=== PATIENT | female | born 1935 | race Caucasian/White ===

== ENCOUNTER 2016-05-11 07:31 | Outpatient (CLI) | payer MEDICARE, OTHER | END 2016-05-11 07:32 | disposition home or self-care (01) | DX: R73.9 Hyperglycemia, unspecified (principal); E03.9 Hypothyroidism, unspecified; J44.9 Chronic obstructive pulmonary disease, unspecified ==

== ENCOUNTER 2016-07-06 09:35 | Outpatient (CLI) | payer MEDICARE, OTHER | END 2016-07-06 09:36 | disposition home or self-care (01) | DX: E03.9 Hypothyroidism, unspecified (principal) ==

== ENCOUNTER 2016-11-16 10:18 | Outpatient (CLI) | payer MEDICARE, OTHER ==
[2016-11-16 17:05] LABS: ALBUMIN/GLOBULIN RATIO 1.8 (1.0-2.2); BILIRUBIN,TOTAL 0.8 mg/dL (0.2-1.0); BUN - BLOOD UREA NITROGEN 17 mg/dL (6-20); CALCIUM 9.5 mg/dL (8.5-10.3); CARBON DIOXIDE - CO2 28 mmol/L (21-32); CHLORIDE 103 mmol/L (101-111); CHOL/HDL RATIO 2.8 (<4.4); CHOLESTEROL 214 mg/dL; CREATININE 0.6 mg/dL (0.4-1.0); GFR - MDRD 96 (>89); GLUCOSE 97 mg/dL (70-100); HDL CHOLESTEROL 76 mg/dL; POTASSIUM 4.4 mmol/L (3.5-5.0); SODIUM 139 mmol/L (135-145); TOTAL PROTEIN 6.5 g/dL (6.7-8.2); TRIGLYCERIDES 31 mg/dL
[2016-11-16 17:24] LABS: LDL CHOLESTEROL,DIRECT 120 mg/dL
== END 2016-11-16 10:19 | disposition home or self-care (01) ==
LOC: LAB.WCP 10:18
PROVIDERS: ATTEND Physician Assistant Medical
DX: E78.5 Hyperlipidemia, unspecified (principal)
CPT/HCPCS: 36415; 80053; 80061

== ENCOUNTER 2016-11-30 11:05 | Outpatient (CLI) | payer MEDICARE, OTHER | END 2016-11-30 11:06 | disposition critical access hospital (66) | LOC: EMS 11:05 | PROVIDERS: ATTEND Surgery | DX: I49.8 Other specified cardiac arrhythmias (principal) | CPT/HCPCS: A0425; A0427 ==

== ENCOUNTER 2016-11-30 11:24 | Emergency (ER) | payer MEDICARE, OTHER ==
[2016-11-30] MEDS ORDERED: SODIUM CHLORIDE FLUSH 0.9% 10 ML SYRINGE IVP ONE (12:03)
[2016-11-30 12:36] LABS: ALBUMIN/GLOBULIN RATIO 1.7 (1.0-2.2); BILIRUBIN,TOTAL 0.8 mg/dL (0.2-1.0); CALCIUM 9.4 mg/dL (8.5-10.3); CREATININE 0.7 mg/dL (0.4-1.0); POTASSIUM 4.1 mmol/L (3.5-5.0); TOTAL PROTEIN 6.1 g/dL (6.7-8.2)
--- NOTE | 2016-11-30 13:23 | ED Physician Documentation ---
PD HPI CHEST PAIN - Stated complaint Stated Complaint: EKG - Chief complaint Chief Complaint: Cardiac - History obtained from History obtained from: Patient - History of Present Illness Timing - onset: Other (she has not had chest pain. Was seen in PCP office today for routine visit, without chest pain complaint. Noted some irregular heart rate and she says she does feel skipping heart rate intermittently. 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 Sent to ED for further evaluation.) Timing - details: No: Still present Quality: Other (has not had chest pain nor pressure. Mild AYOUB. feels palpatiations at times.) Associated symptoms: Shortness of air, Palpitations. No: Nausea, Feeling faint / dizzy, General Weakness Similar symptoms before: Has not had sx before Recently seen: Clinic (today, with ECG that was concerning and referred to ED for evaluation.) Review of Systems Constitutional: denies: Fever, Chills, Myalgias Throat: denies: Sore throat Cardiac: reports: Palpitations. denies: Chest pain / pressure, Pedal edema, Calf pain Respiratory: reports: Dyspnea (mild with exertion). denies: Cough, Wheezing GI: denies: Abdominal Pain, Nausea, Vomiting Neurologic: denies: Generalized weakness, Focal weakness, Numbness, Syncope Endocrine: denies: Weight loss, Weight gain, Easy bruising / bleeding Immunocompromised: denies: Immunocompromised PD PAST MEDICAL HISTORY - Past Medical History Cardiovascular: None Respiratory: COPD - Past Surgical History /PRINCIPAL EXAMINER: Hysterectomy - Present Medications Home Medications: Ambulatory Orders Medication Instructions Recorded Confirmed Metoprolol Succinate [Toprol Xl] 25 mg PO DAILY #30 tab.er.24h 11/30/16 - Allergies Allergies/Adverse Reactions: Allergies Allergy/AdvReac Type Severity Reaction Status Date / Time No Known Drug Allergies Allergy Verified 11/30/16 11:36 - Social History Does the pt smoke?: No Smoking Status: Former smoker Does the pt drink ETOH?: Yes ETOH Use: Wine Does the pt have substance abuse?: No - Immunizations Immunizations: No immun PD ED PE NORMAL - Vitals Vital signs reviewed: Yes - General General: Alert and oriented X 3, No acute distress, Well developed/nourished, Other (vigorous appearing woman for age. ) - Neck Neck: Supple, no meningeal sign, No adenopathy - Cardiac Cardiac: RRR (some irregularity with pauses c/w PACs, as seen on monitor as well. ), No murmur, No rub - Respiratory Respiratory: Clear bilaterally - Abdomen Abdomen: Normal bowel sounds, Soft, Non tender - Female Female : Deferred - Rectal Rectal: Deferred - Back Back: No CVA TTP - Derm Derm: Normal color, Warm and dry - Extremities Extremities: No tenderness to palpate, Normal ROM s pain, No edema, No calf tenderness / cord - Neuro Neuro: Alert and oriented X 3, No motor deficit, Normal speech - Psych Psych: Normal mood, Normal affect Results - Vitals Vitals: Vital Signs - 24 hr 11/30/16 11/30/16 11/30/16 11:32 13:40 14:57 Temperature 36.9 C 36.4 C L 36.6 C Heart Rate 68 93 79 Respiratory 16 22 18 Rate Blood Pressure 154/93 H 118/66 111/76 O2 Saturation 98 97 96 Oxygen O2 Source Room air - EKG (time done) 11:56 Rhythm: NSR, Other (frequent PACs) [place]: Normal Intervals: Normal [place] Ischemia: T wave inversion (anteriorly c/w prior anteroseptal infarct). No: ST elevation c/w ischemia, ST depression Compare to prior EKG: Old EKG unavailable - Labs Labs: Laboratory Tests 11/30/16 11/30/16 12:08 12:08 Sodium 139 Potassium 4.1 Chloride 103 Carbon Dioxide 27 Anion Gap 9.0 BUN 21 H Creatinine 0.7 Estimated GFR (MDRD) 80 L Glucose 98 Calcium 9.4 Total Bilirubin 0.8 AST 18 ALT 21 Alkaline Phosphatase 50 Troponin I 0.04 Total Protein 6.1 L Albumin 3.8 Globulin 2.3 Albumin/Globulin Ratio 1.7 Lipase 19 L - Rads (name of study) ECHO Radiology: Prelim report reviewed, Final report received (mild LVH, EF 70%, no regional wall motion abnormality) PD MEDICAL DECISION MAKING - ED course Complexity details: considered differential (abnormal ECG obtained at routine office visit, showing c/w prior septal infarct but normal Troponin and ECHO, so not apparent recent nor large [place]. Refer to PCP for possible cardiology referral. She does have frequent PACs here but feels okay. Consider low dose betablocker but she did not want to start med until talking with PCP and also prior PCP in [place], to whom she goes and gets exam 1-2 times yearly. ), d/ w patient Departure - Departure Disposition: 01 Home, Self Care Clinical Impression: Abnormal ECG, PAC (premature atrial contraction) Condition: Stable Record reviewed to determine appropriate education?: Yes Follow-Up: Gudelia Hatch PA-C [Primary Care Provider] - Prescriptions: Metoprolol Succinate [Toprol Xl] 25 mg PO DAILY #30 tab.er.24h Comments: Call and talk to your provider here in would [facility] and the one in [place] that you have. For the provider in [place], ask her to request the emergency room report which would include the nursing notes, EKG, lab tests , ultrasound report. Right now there is no signs of obvious heart malfunction mechanically on ultrasound. You do have an irregularity of the heartbeat called PACs. This could potentially be lessened with medication such as beta- chris. Discussed this with your provider. Your providers may still want you to see a data processing specialist fruit or nut picker, but would be at their referral. Discharge Date/Time: 11/30/16 15:12
[2016-11-30 14:58] VITALS: BP 111/76
== END 2016-11-30 15:12 | disposition home or self-care (01) ==
LOC: EDUNIT# → EDBD → ED 11:24
DX: R94.31 Abnormal electrocardiogram [ECG] [EKG] (principal); I49.1 Atrial premature depolarization; Z87.891 Personal history of nicotine dependence
CPT/HCPCS: 36415; 80053; 83690; 84484; 93005; 93306; 99283; 99284

== ENCOUNTER 2017-08-19 08:00 | Outpatient (CLI) | payer MEDICARE, OTHER ==
[2017-08-19 18:55] LABS: BASOPHILS % (AUTO) 0.7 %; EOSINOPHILS % (AUTO) 0.5 %; HGB - HEMOGLOBIN 14.5 g/dL (12.0-16.0); LYMPHOCYTES # (AUTO) 0.7 10^3/uL (1.5-3.5); LYMPHOCYTES % (AUTO) 15.1 %; MEAN CORPUSCULAR HEMOGLOBIN 32.8 pg (27.0-31.0); MEAN CORPUSCULAR HGB CONC 32.8 g/dL (32.0-36.0); MEAN CORPUSCULAR VOLUME 99.9 fL (81.0-99.0); MEAN PLATELET VOLUME 8.9 fL (7.9-10.8); MONOCYTES # (AUTO) 0.4 10^3/uL (0.0-1.0); MONOCYTES % (AUTO) 8.1 %; NEUTROPHILS # (AUTO) 3.7 10^3/uL (1.5-6.6); NEUTROPHILS % (AUTO) 75.6 %; PLT - PLATELET COUNT 239 10^3/uL (130-450); RED BLOOD COUNT 4.42 10^6/uL (4.20-5.40); RED CELL DISTRIBUTION WIDTH 14.1 % (12.0-15.0); WHITE BLOOD COUNT 4.9 x10^3/uL (4.8-10.8)
[2017-08-19 19:31] LABS: ALBUMIN/GLOBULIN RATIO 1.3 (1.0-2.2); ALKALINE PHOSPHATASE 59 IU/L (42-121); ALT ALANINE AMINOTRANSFERASE 31 IU/L (10-60); AST ASPARTATE AMINOTRANSFERASE 31 IU/L (10-42); BILIRUBIN,TOTAL 0.9 mg/dL (0.2-1.0); BUN - BLOOD UREA NITROGEN 18 mg/dL (6-20); CALCIUM 9.6 mg/dL (8.5-10.3); CARBON DIOXIDE - CO2 26 mmol/L (21-32); CHLORIDE 101 mmol/L (101-111); CHOL/HDL RATIO 2.4 (<4.4); CHOLESTEROL 247 mg/dL; CREATININE 0.8 mg/dL (0.4-1.0); GFR - MDRD 69 (>89); GLUCOSE 82 mg/dL (70-100); HDL CHOLESTEROL 101 mg/dL; LDL CHOLESTEROL,CALCULATED 130 mg/dL; LDL/HDL RATIO 1.3 (<4.4); SODIUM 136 mmol/L (135-145); TOTAL PROTEIN 7.1 g/dL (6.7-8.2); VLDL CHOLESTEROL 16 mg/dL
[2017-08-19 19:40] LABS: THYROID STIMULATING HORMONE 2.43 uIU/mL (0.34-5.60)
[2017-08-19 19:42] LABS: FREE T4 (FREE THYROXINE) 1.04 ng/dL (0.58-1.64)
== END 2017-08-19 08:01 | disposition home or self-care (01) ==
LOC: LAB.WCP 08:00
PROVIDERS: ATTEND Physician Assistant Medical
DX: E78.5 Hyperlipidemia, unspecified (principal)
CPT/HCPCS: 36415; 80053; 80061; 83721; 84439; 84443; 84481; 85025